=== PATIENT | male | born 1950 | race Caucasian/White ===

== ENCOUNTER 2019-02-07 23:43 | Inpatient (IN) | payer OTHER ==
[~2019-02-07] VITALS: Ht 175.3 cm; Wt 78.7 kg
[~2019-02-07 23:43] MED LIST: ASPI81CH PO; Humulin N100 UNIT/1 SC; METO5A PO; NOVOLIN NPH SC; Norco 5-325 Ta1 EACH PO; Novolin R100 UNIT/M SC; PRAV20 PO; PROM12.5S PR; Plavix75 MG PO; Robaxin-750750 MG PO; Zofran4 MG PO; Zofran8 MG PO; [UNRECOGNIZED DRUG - CODE] PO
[2019-02-08] MEDS ORDERED: ASPI325 PO (00:07)
[2019-02-08 00:17] LABS: BASOPHILS ABSOLUTE AUTO 0.05 K/mm3 (0.00-0.23); BASOPHILS PERCENT AUTO 1 % (0-2); EOSINOPHILS PERCENT AUTO 3 % (0-6); Hematocrit 47.2 % (37.0-53.0); Hemoglobin 16.2 g/dL (13.5-17.5); IMMATURE GRAN ABSOLUTE AUTO 0.04 K/mm3 (0.00-0.10); IMMATURE GRAN PERCENT AUTO 0 % (0-1); LYMPHOCYTES ABSOLUTE AUTO 2.44 K/mm3 (0.84-5.20); LYMPHOCYTES PERCENT AUTO 23 % (21-46); MONOCYTES ABSOLUTE AUTO 0.99 K/mm3 (0.16-1.47); MONOCYTES PERCENT AUTO 9 % (4-13); Mean Corpuscular HGB 31.8 pg (26.0-34.0); Mean Corpuscular HGB Conc 34.3 g/dL (31.5-36.5); Mean Corpuscular Volume 93 fL (80-100); Mean Platelet Volume 10.9 fL (9.1-12.4); NEUTROPHILS ABSOLUTE AUTO 6.86 K/mm3 (1.96-9.15); NEUTROPHILS PERCENT AUTO 64 % (41-73); Platelet Count 246 K/mm3 (150-400); RDW Standard Deviation 41.1 fL (35.1-46.3); White Blood Cell Count 10.68 K/mm3 (4.00-11.30)
[2019-02-08 00:39] LABS: International Normalized Ratio 0.97; Prothrombin Time Results 10.3 Sec (9.7-11.5)
[2019-02-08 00:43] LABS: Alanine Aminotransfer (ALT/SGP 37 U/L (12-78); Albumin, Blood 4.4 g/dL (3.4-5.0); Albumin/Globulin Ratio 1.2 (0.8-1.8); Alk Phos 99 U/L (50-136); Anion Gap 10 mmol/L (6-16); Aspartate Aminotrans (AST/SGOT 106 U/L (12-37); Bilirubin, Total 0.7 mg/dL (0.1-1.0); Blood Urea Nitrogen 15 mg/dL (8-24); Bun/Creatinine Ratio 23.3 (12.0-20.0); CO2, Blood 22 mmol/L (21-32); Calcium, Blood 9.7 mg/dL (8.5-10.1); Chloride, Blood 103 mmol/L (98-108); Creatinine, Blood 0.65 mg/dL (0.60-1.20); Globulin, Blood 3.8 g/dL (2.2-4.0); Glomerular Filtration Rate >60 (60-); Glucose, Blood 287 mg/dL (70-99); Potassium, Blood 3.7 mmol/L (3.5-5.5); Sodium, Blood 135 mmol/L (136-145); Total Protein, Blood 8.2 g/dL (6.4-8.2)
--- NOTE | 2019-02-08 01:30 | NUR ---
ADMIT NOTE: ADMIT 68 YEAR OLD MALE TO ICU 9 PER SENIOR RECRUITMENT CONSULTANT TO DR FREITAS SERVICE. AWAKE TR BAND INTACT SITE CLEAR . ALERT ORIENTED. LUNG SOUNDS CLEAR RESPIRATIONS REGULAR AND EASY ON ROOM AIR SPO2 96-98%. ABDOMEN SOFT NON TENDER WITH BOWEL SOUNDS FOUR QUADS. SKIN NULL WARM/DRY PSORSIS AREAS NOTED TO BOTH FOREARMS. NO EDEMA NOTED PEDAL PULSES PRESENT. CONTINUE TO MONITOR AND REPORT CHANGE IN PATIENT CONDITION DR FREITAS AT BEDSIDE OREDERS NOTED. PT CO NAUSEA MEDICATED WITH 4MG ZOFRAN IV.
--- NOTE | 2019-02-08 04:05 | NUR ---
CO NAUSEA RETCHING DRY HEAVES. NO EMESIS NOTED CONTINUE TO MONITOR
--- NOTE | 2019-02-08 08:09 | NUR ---
CARE ASSUMED CARE AND REPORT ASSUMED FROM LUIS SCHWARZ. PT SLEEPING THEN SUDDENLY AROUSED AND STARTED DRY HEAVING. PT STATES HE NORMALLY GETS ABDOMINAL PAIN AND NAUSEA POST STEMI EACH TIME. ZOFRAN 4 MG IVP GIVEN. BP ELEVATED AND UNABLE TO ADMINISTER MORNING BP MEDS DUE TO NAUSEA. MD WINSLOW NOTIFIED AND BP MED ORDERS WRITTEN; WILL ADMINISTER. NSR WITH PACS, HR 90-100S. WILL CONTINUE TO MONITOR.
[2019-02-08 09:59] LABS: Anion Gap 10 mmol/L (6-16); Blood Urea Nitrogen 12 mg/dL (8-24); Bun/Creatinine Ratio 23.8 (12.0-20.0); CHOL/HDL RATIO 5.5; CO2, Blood 23 mmol/L (21-32); Calcium, Blood 8.8 mg/dL (8.5-10.1); Chloride, Blood 103 mmol/L (98-108); Cholesterol 275 mg/dL (50-200); Creatinine, Blood 0.51 mg/dL (0.60-1.20); Glomerular Filtration Rate >60 (60-); Glucose, Blood 255 mg/dL (70-99); HDL Cholesterol 50 mg/dL (>39); LDL/HDL RATIO 4.1; Low Density Lipoprotein Chol 205 mg/dL (0-110); Potassium, Blood 3.3 mmol/L (3.5-5.5); Sodium, Blood 136 mmol/L (136-145); Triglycerides 100 mg/dL (30-160); Very Low Density Lipoprot Chol 20 mg/dL (6-32)
--- NOTE | 2019-02-08 11:37 | NUR ---
REASSESSMENT PT TOELRATED EATING CHICKEN NOODLE SOUP AND WAS ABLE TO TAKE PLAVIX PO. CONTINUALLY MOANING IN ROOM. MIV NS STARTED AT 75 ML/HR FOR CONCURRENT ADMINISTRATION OF POTASSIUM CHLORIDE. MD FREITAS AWARE OF TROPONIN 123; PLAN TO RECHECK THIS AFTERNOON. HEPARIN GTT INCREASED TO 15 UNITS/HR AND BOLUS GIVEN PER PHARMACY. BP 160S SYSTOLIC; WILL MONITOR CLOSELY AND START NITRO GTT IF NEEDED. REMAINS IN NSR, HR 80S. PT TURNS SELF IN BED. WILL CONTINUE TO MONITOR.
--- NOTE | 2019-02-08 12:09 | NUR ---
K+ REFUSAL DURING POTASSIUM INFUSION, PT SUDDENLY AWOKE AND BEGAN SCREAMING, "TURN THAT SHIT OFF OR I WILL RIP THE IV OUT OF MY ARM. I WILL NOT TOLERATE THAT." EXPLAINED TO PT THE NEED FOR POTASSIUM REPLACEMENT AND HE STATED HE WILL NOT ALLOW STAFF TO INFUSE THAT POTASSIUM AND REQUESTED A BANANA INSTEAD. WILL ATTEMPT TO OBTAIN BANANA. POTASSIUM INFUSION STOPPED.
--- NOTE | 2019-02-08 17:46 | NUR ---
SHIFT SUMMARY PT FEELING BETTER THIS AFTERNOON. WAS VOMITING AND DRY HEAVING IN THE MORNING BUT SYMPTOMS HAVE SINCED IMPROVED. PT STATES ZOFRAN WORKS BEST FOR HIM; RECIEVED 2 DOSES DURING THIS SHIFT. HEPARIN GTT INFUSED ENTIRE SHIFT; CURRENTLY AT 15 UNITS/HR. ATTEMPTED TO ADMINISTER 40 MEQ K+ REPLACEMENT BUT PT REFUSED AND POTASSIUM WAS THEN TURNED OFF. DENIES PAIN AT THIS TIME. R RADIAL SITE IS CLEAN AND DRY AND ARM REMAINS IN ARMBOARD. PT STOOD AT BEDSIDE, AMBULATED WIHTOUT ASSISTANCE, AND SAT IN CHAIR FOR FEW HOURS. SLEPT ON/OFF DURING DAY. TOELRATED DINNER THIS EVENING WITHOUT VOMITING. NO NEED FOR NITRO GTT TODAY BP IMPROVED THROUGHOUT DAY. LABS PENDING AT THIS TIME; WILL MONITOR. WILL GIVE BEDSIDE, HANDOFF REPORT TO PACO RN.
[2019-02-08 18:57] LABS: Potassium, Blood 3.6 mmol/L (3.5-5.5); Troponin I 57.2 ng/mL (0.000-0.040)
--- NOTE | 2019-02-09 00:22 | NUR ---
ASSUMED CARE ASSUMED CARE OF PT APROX. 1900. PT A&OX4. ASSESSMENT COMPLETED VITAL SIGNS STABLE. PT HAD RT RADIAL SITE. TEGADERM OVER INCERSION AND ARMBOARD REMAINS IN PLACE AT THIS TIME. NO S/SX OF SWELLING, HEMATOMA, OR BLEEDING. SITE NON TENDER. PT REPORTS HAVING NAUSEA AT THIS TIME. PRN NAUSEA MEDICATION GIVEN PER EMAR. PT STATES FEELING TIRED AND READY FOR SOME REST. BED IN LOW POSITION, CALL LIGHT IN REACH AND PT DENIES ANY NEEDS AT THIS TIME.
[2019-02-09 03:54] LABS: Anion Gap 7 mmol/L (6-16); Blood Urea Nitrogen 27 mg/dL (8-24); Bun/Creatinine Ratio 43.5 (12.0-20.0); CO2, Blood 22 mmol/L (21-32); Calcium, Blood 8.6 mg/dL (8.5-10.1); Chloride, Blood 105 mmol/L (98-108); Creatinine, Blood 0.62 mg/dL (0.60-1.20); Glomerular Filtration Rate >60 (60-); Glucose, Blood 202 mg/dL (70-99); Potassium, Blood 3.5 mmol/L (3.5-5.5); Sodium, Blood 134 mmol/L (136-145)
--- NOTE | 2019-02-09 06:45 | NUR ---
SHIFT SUMMARY PT PLEASANT, COOPERATIVE AND USES CALL LIGHT APPROPRIATELY. PT REMAINS A&OX4. ASSESSMENT FINDINGS REMAIN UNCHANGED. VITAL SIGNS STABLE. NO CHANGED ON RT RADIAL SITE. ARMBOARD REMAINS IN PLACE WITH TEGADERM DRESSING. NO S/SX OF SWELLING, BLEEDING OR HEMATOMA AND SITE REMAINS NONTENDER. PT CONTINUED TO HAVE INCREASED NAUSEA INTERMITTENLY. PRN NAUSEA MEDICATION GIVEN PER EMAR NEEDED. PT ABLE TO REST FOR MOST OF SHIFT. UTILIZED URINAL NEEDED. BED IN LOW POSITION, CALL LIGHT IN REACH AND PT DENIES ANY NEEDS AT THIS TIME. WILL CONTINUE TO MONITOR UNTIL HANDOFF TO DAYSHIFT RN.
--- NOTE | 2019-02-09 16:13 | NUR ---
PT RESTING COMFORTABLY EYES CLOSED BREATHING EVEN AND UNLABORED NADN. WILL CONTINUE TO MONITOR
--- NOTE | 2019-02-09 18:43 | NUR ---
END OF SHIFT; PT REMAINS ON BEDREST MOST OF DAY. ONLY GETTING UP TO USE BEDSIDE COMMODE. HE IS AO X 4. HAS PLEASANT AFFECT. DOES COMPLAIN OF NAUSEA. NO VOMITTING NOTED. NO CHEST PAIN. ORDERS REPEAT EKG WHICH IS DONE AND ON FRONT OF CHART. ORDERED 5 UNITS HUMULOG WITH MEALS BUT STOPPED WHEN HE LEARNED PT WAS NOT EATING VERY MUCH BECAUSE OF NAUSEA. ARM BOARD IN PLACE FROM TR BAND SITE. CLEAN AND DRY. WILL CONTINUE TO MONITOR THIS PATIENT UNTIL REPORT AND HAND OFF
--- NOTE | 2019-02-09 19:15 | NUR ---
ASSUMED CARE OF PT, REPORT RCV'D FROM KARISHMA NASH. PT ALERT AND ORIENTED SITTING IN BED. PT DENIES CHEST PAIN AT THIS MOMENT BUT REPORTS CONTINUED NAUSEA. PER DAYSHIFT NURSE PT'S DOSES OF ZOFRAN HAVE NOT HELPED AND PT HAS PROLONGED QT. PT TO BE GIVEN ATIVAN AND DOSE OF MG PER JUANITO GALEANO NP. VSS. IRREGULAR HR, SEE RHYTHM STRIP. SEE FULL SHIFT ASSESSMENT.
--- NOTE | 2019-02-09 19:18 | NUR ---
PT COMPLAINING OF NAUSEA AT SHIFT CHANGE. JUANITO GARMENT WORKER IS CALLED AND TELEPHONE ORDER RECEIVED FOR 2GM MAGNESIUM IV NOW, ATIVAN 0.5MG -1MG PRN NAUSEA Q4 AND EKG IN AM. PASSED ON THIS INFOR TO NIGHT NURSE
--- NOTE | 2019-02-10 06:04 | NUR ---
SHIFT SUMMARY NO ACUTE CHANGES OVERNIGHT. PT HAD NO COMPLAINTS OF NAUSEA AFTER 1MG DOSE OF ATIVAN. NO CHEST PAIN OR SHORTNESS OF BREATH. VSS. WILL REPORT TO DAYSHIFT NURSE.
--- NOTE | 2019-02-10 07:29 | NUR ---
ASSUMED CARE OF PATIENT; SEE ASSESSMENT CHARTING FOR DETAILS. PATIENT SLEEPING BUT ROUSES EASILY AND IS ORIENTED AND COOPERATIVE; DENIES ACUTE C/O. TR BAND SITE (R WRIST) WITHOUT S/SX'S OF BLEEDING, SWELLING OR HEMATOMA. MONITOR SHOWS SINUS ARRYTHMIA WITH PAC'S; VSS. LUNGS CLEAR; BIOX. HIGH 90'S ON ROOM AIR. POSSIBLE DISCHARGE TODAY; AWAITING PHYSICIANS TO MAKE ROUNDS.
--- NOTE | 2019-02-10 08:01 | NUR ---
DR. WINSLOW (HOSPITALIST) HERE; WANTS RN TO D/C IVF'S NOW THAT PATIENT ABLE TO TOLERATE DIET. POSSIBLE D/C HOME TODAY; AWAITING RACK PUNCHER TO ROUND.
--- NOTE | 2019-02-10 08:24 | NUR ---
SEAM STAY STITCHER, DR. FREITAS, HERE. WANTS PATIENT TO RECEIVE A LIFE VEST BEFORE DISCHARGING TO HOME. PAPERWORK FILLED OUT BY PHYSICIAN; NURSING TO FAX TO SUPPLIER.
--- NOTE | 2019-02-10 09:58 | NUR ---
[facility], COMPLETED FAXING PROCESS,ETC.; FAXED COPY OF ECHO AND LAY OUT DRAFTER REPORT WELL FACE SHEET AND ORDER. AWAITING CONTACT BACK RE: WHEN VEST CAN BE EXPECTED.
--- NOTE | 2019-02-10 10:21 | NUR ---
Patient is sleeping but easily awakens to the sound of his name. 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 Patient sates that they are stress and now this medical event has been discouraging. I listen empathically, provide pastoral teacher counselor, companionship and prayer. Patient responds well and shows signs of restored alexi.
--- NOTE | 2019-02-10 12:00 | NUR ---
REGLAN 5MG IV FOR MILD NAUSEA. APPETITE FAIR TO GOOD; NO EMESIS OR HEARTBURN. IVF OF NS DISCONTINUED, PER ORDER OF DR. WINSLOW. VOIDING MOD. TO LARGE AMOUNTS OF DK. YELLOW URINE.
[2019-02-10] MEDS ORDERED: ASPI81CH PO (12:15)
--- NOTE | 2019-02-10 12:30 | NUR ---
[employer] TO ARRIVE BETWEEN 16:30 AND 17:00 PM; INFORMED RN THAT INSTRUCTION TO PATIENT WILL TAKE 1 TO 1-1/2 HOURS.
[2019-02-10] MEDS ORDERED: CLOP75 PO (13:44)
[2019-02-10] MEDS ORDERED: ATOR40TA PO (13:44)
[2019-02-10] MEDS ORDERED: FAMO20 PO (13:45)
[2019-02-10] MEDS ORDERED: LISI5 PO (13:46)
[2019-02-10] MEDS ORDERED: METO25 PO (13:48)
--- NOTE | 2019-02-10 16:45 | NUR ---
PATIENTS' SPOUSE HERE TO LISTEN TO INSTRUCTIONS FOR VEST AND THEN TAKE PATIENT HOME.
--- NOTE | 2019-02-10 17:00 | NUR ---
LIFE VEST TECH., KELLY, ARRIVED; PATIENT AND SPOUSE ANXIOUS FOR INSTRUCTION. NOTE: PATIENT WAS BECOMING ANXIOUS FOR TECH. TO ARRIVE AND WAS CONSIDERING GOING HOME WITHOUT THE VEST. RN QUESTIONED PATIENT IF HE KNEW WHY THE DOCTOR HAD ORDERED THE VEST AND HE SAID "NO". RN EXPLAINED TO PATIENT AND SPOUSE THAT IN 2017 PATIENTS' EF WAS 65-70% BUT ECHO DONE THIS HOSP. ADMISSION SHOWS EF OF 35%. PATIENT AGREEABLE WITH WAITING FOR TECH.
--- NOTE | 2019-02-10 18:15 | NUR ---
DISCHARGE INSTRUCTIONS GIVEN TO PATIENT WITH UNDERSTANDING VERBALIZED. LIFE VEST INSTRUCTOR LEFT AT 1802. PATIENT EATING DINNER AND NOW RN DISCONTINUING IV'S X 2 PER PROTOCOL. PATIENT THEN GETTING DRESSED.
--- NOTE | 2019-02-10 18:30 | NUR ---
DISCHARGED HOME WITH SPOUSE. TO VEHICLE VIA W/C; BELONGINGS AND LIFE VEST WITH PATIENT (CONNECTED TO VEST AND MACHINE).
== END 2019-02-10 18:30 | disposition home or self-care (01) | DRG 249 ==
LOC: ER 23:43 → ICUW 02-08 00:08
PROVIDERS: Emergency Medicine; ADMIT Emergency Medicine
PROC: 02703DZ Dilation of Coronary Artery, One Artery with Intraluminal Device, Percutaneous Approach (ICD-10-PCS; principal; 2019-02-08)
PROC: 4A023N7 Measurement of Cardiac Sampling and Pressure, Left Heart, Percutaneous Approach (ICD-10-PCS; 2019-02-08)
PROC: B2161ZZ Fluoroscopy of Right and Left Heart using Low Osmolar Contrast (ICD-10-PCS; 2019-02-08)
DX: I21.02 ST elevation (STEMI) myocardial infarction involving left anterior descending coronary artery (principal); I25.10 Atherosclerotic heart disease of native coronary artery without angina pectoris; I10 Essential (primary) hypertension; E11.42 Type 2 diabetes mellitus with diabetic polyneuropathy; Z79.4 Long term (current) use of insulin; Z79.82 Long term (current) use of aspirin; E78.5 Hyperlipidemia, unspecified; Z91.14 Patient's other noncompliance with medication regimen; Z79.02 Long term (current) use of antithrombotics/antiplatelets; I25.5 Ischemic cardiomyopathy
CPT/HCPCS: 36415; 80048; 80053; 80061; 82947; 83036; 84132; 84484; 85025; 85347; 85610; 85730; 92941; 93005; 93010; 93458; 96374; 99152; 99153; 99285-25; C1725; C1769; C1876; C1887; C1894; C8923; J1644; J1815; J2060; J2250; J2270; J2405; J2765; J3010; J3475; J3480; J7030; Q9967

== ENCOUNTER 2019-02-11 17:35 | Inpatient (IN) | payer OTHER ==
[~2019-02-11] VITALS: Ht 175.3 cm; Wt 77.7 kg
[~2019-02-11 17:35] MED LIST changes: +ASPI325 PO; +ATOR40TA PO; +CLOP75 PO; +FAMO20 PO; +LISI5 PO; +METO25 PO
[2019-02-11 17:59] LABS: BASOPHILS ABSOLUTE AUTO 0.05 K/mm3 (0.00-0.23); BASOPHILS PERCENT AUTO 0 % (0-2); EOSINOPHILS ABSOLUTE AUTO 0.19 K/mm3 (0.00-0.68); EOSINOPHILS PERCENT AUTO 2 % (0-6); Hematocrit 42.7 % (37.0-53.0); Hemoglobin 14.6 g/dL (13.5-17.5); IMMATURE GRAN ABSOLUTE AUTO 0.06 K/mm3 (0.00-0.10); IMMATURE GRAN PERCENT AUTO 1 % (0-1); LYMPHOCYTES ABSOLUTE AUTO 2.01 K/mm3 (0.84-5.20); LYMPHOCYTES PERCENT AUTO 16 % (21-46); MONOCYTES ABSOLUTE AUTO 1.26 K/mm3 (0.16-1.47); MONOCYTES PERCENT AUTO 10 % (4-13); Mean Corpuscular HGB 31.8 pg (26.0-34.0); Mean Corpuscular HGB Conc 34.2 g/dL (31.5-36.5); Mean Corpuscular Volume 93 fL (80-100); Mean Platelet Volume 11.1 fL (9.1-12.4); NEUTROPHILS ABSOLUTE AUTO 8.84 K/mm3 (1.96-9.15); NEUTROPHILS PERCENT AUTO 71 % (41-73); Platelet Count 246 K/mm3 (150-400); RDW Coefficient Variation 11.9 % (11.7-14.2); Red Blood Cell Count 4.59 M/mm3 (4.30-5.90); White Blood Cell Count 12.41 K/mm3 (4.00-11.30)
[2019-02-11 18:15] LABS: International Normalized Ratio 0.99; Prothrombin Time Results 10.5 Sec (9.7-11.5)
[2019-02-11 18:26] LABS: Alanine Aminotransfer (ALT/SGP 30 U/L (12-78); Albumin, Blood 4.2 g/dL (3.4-5.0); Albumin/Globulin Ratio 1.1 (0.8-1.8); Alk Phos 90 U/L (50-136); Anion Gap 9 mmol/L (6-16); Aspartate Aminotrans (AST/SGOT 29 U/L (12-37); Bilirubin, Total 0.6 mg/dL (0.1-1.0); Blood Urea Nitrogen 24 mg/dL (8-24); Bun/Creatinine Ratio 32.7 (12.0-20.0); CO2, Blood 26 mmol/L (21-32); Calcium, Blood 9.5 mg/dL (8.5-10.1); Chloride, Blood 98 mmol/L (98-108); Creatinine, Blood 0.73 mg/dL (0.60-1.20); Globulin, Blood 3.8 g/dL (2.2-4.0); Glomerular Filtration Rate >60 (60-); Glucose, Blood 303 mg/dL (70-99); Sodium, Blood 133 mmol/L (136-145)
--- NOTE | 2019-02-11 22:31 | NUR ---
ASSUMED CARE OF PT. PT TO ICU 15 FROM DIRECTOR REPORT FOLLOWING STENT TO PROXIMAL RCA AND BALLOONING OF LAD. PT DENIES CHEST PAIN OR SHORTNESS OF BREATH. PT STATES HE DOES FEEL LIKE HE HAS A CRAMP IN HIS NECK BUT DENIES THAT THIS PAIN IS SIMILAR TO PREVIOUS CARDIAC PAIN. PT CURRENTLY RESTING, AT BEDSIDE. PT DENIES NEEDS AT THIS TIME. SEE ADMISSION ASSESSMENT.
[2019-02-12 04:01] LABS: BASOPHILS ABSOLUTE AUTO 0.06 K/mm3 (0.00-0.23); BASOPHILS PERCENT AUTO 1 % (0-2); EOSINOPHILS PERCENT AUTO 4 % (0-6); Hematocrit 38.6 % (37.0-53.0); IMMATURE GRAN ABSOLUTE AUTO 0.06 K/mm3 (0.00-0.10); IMMATURE GRAN PERCENT AUTO 1 % (0-1); LYMPHOCYTES ABSOLUTE AUTO 1.81 K/mm3 (0.84-5.20); LYMPHOCYTES PERCENT AUTO 18 % (21-46); MONOCYTES ABSOLUTE AUTO 1.21 K/mm3 (0.16-1.47); MONOCYTES PERCENT AUTO 12 % (4-13); Mean Corpuscular HGB 31.5 pg (26.0-34.0); Mean Corpuscular HGB Conc 33.7 g/dL (31.5-36.5); Mean Corpuscular Volume 94 fL (80-100); NEUTROPHILS ABSOLUTE AUTO 6.67 K/mm3 (1.96-9.15); NEUTROPHILS PERCENT AUTO 65 % (41-73); Platelet Count 215 K/mm3 (150-400); RDW Coefficient Variation 11.9 % (11.7-14.2); RDW Standard Deviation 41.1 fL (35.1-46.3); Red Blood Cell Count 4.13 M/mm3 (4.30-5.90); White Blood Cell Count 10.21 K/mm3 (4.00-11.30)
[2019-02-12 04:16] LABS: Anion Gap 6 mmol/L (6-16); Blood Urea Nitrogen 18 mg/dL (8-24); CO2, Blood 25 mmol/L (21-32); Calcium, Blood 8.6 mg/dL (8.5-10.1); Chloride, Blood 105 mmol/L (98-108); Creatinine, Blood 0.55 mg/dL (0.60-1.20); Glomerular Filtration Rate >60 (60-); Glucose, Blood 219 mg/dL (70-99); Potassium, Blood 4.2 mmol/L (3.5-5.5); Sodium, Blood 136 mmol/L (136-145)
--- NOTE | 2019-02-12 05:52 | NUR ---
SHIFT SUMMARY NO ACUTE CHANGES SINCE ADMISSION. PT ABLE TO REST WELL OVERNIGHT WITH NO COMPLAINTS OF CHEST PAIN OR SHORTNESS OF BREATH. PT COMPLAINED OF "NECK CRAMP" ON HIS RIGHT SIDE THAT WAS HELPED WITH REPOSITIONING AND TYLENOL. RIGHT RADIAL ACCESS SITE COVERED IN CLEAR DRESSING WITH NO SIGNS OF OOZING, ARM BOARD IN PLACE. PT LIKELY TO BE DISCHARGED HOME TODAY PER DR. DAILEY. WILL REPORT TO DAYSHIFT NURSE.
--- NOTE | 2019-02-12 08:08 | NUR ---
0700-ASSUMED CARE OF PT. PT IS ASLEEP AT THIS TIME. WILL ALLOW PATIENT TO SLEEP IN AT THIS TIME. 0730-PT AWAKE. AFEBRILE. PT IS COMPLAINING OF R NECK PAIN. HE DENIES ANY RADIATION OF PAIN TO EXTREMETIES. DENIES OF CHEST PAIN AND CHEST PRESSURE. PT STATES PAIN WHEN NOT MOVING 6/10 WHEN REPOSITIONING IT'S 8/10. APPLIED SOME HEAT PACK TO R SHOULDER. R RADIAL ACCESS SITE VERY SLIGHT BRUISING NOTED, STABLE.
--- NOTE | 2019-02-12 11:13 | NUR ---
PT IS WAITING FOR DR. DAILEY. PT STATES R NECK PAIN HAS IS SLOWING IMPROVING. HE STATED HOT PACK HAS HELPED.
--- NOTE | 2019-02-12 12:06 | NUR ---
1130-PT SEEN BY DR. DAILEY. UPDATED HIM OF PT'S STATUS. DR. DAILEY IS AWARE OF PT'S R NECK, SHOULDER PAIN. PT HAS STATED THE HOT PACK HAS IMPROVED PAIN TO THE R NECK, SHOULDER.
--- NOTE | 2019-02-12 14:36 | NUR ---
PT SITTING ON THE CHAIR AT THIS TIME. PT WAS ABLE TO AMBULATE IN THE ICU [facility]. PT STATED HE WAS SOMEWHAT LIGHTHEADED WITH AMBULTAION. PT IS SLIGHTLY UNSTEADY ON HIS FEET.
--- NOTE | 2019-02-12 17:40 | NUR ---
SHIFT SUMMARY: PT IS ALERT AND ORIENTED. PT STIL COMPLAINTS OF R NECK, SHOULDER CRAMP BUT TOLERABLE PER PATIENT WITH THE HELP OF THE HEATING PAD. NO CHEST PAIN OR PRESSURE NOTED. PT WAS ABLE TO AMBULATE IN THE ICU [facility].
--- NOTE | 2019-02-12 19:45 | NUR ---
ASSUMED CARE PT CARE ASSUMED AT APPROXIMATELY 1900. PT CURRENTLY RESTING IN BED. DENIES CHEST PAIN OR DYSPNEA. R RADIAL SITE WITH PINPOINT INCISION NOTED TO HAVE VERY SMALL AMOUNT OF DRY RED DRAINAGE UNDER CLEAR TEGADERM DRESSING. NO BRUISING, SWELLING OR HEMATOMA NOTED TO CURRENT SITE. SMALL NODULE NOTED BELOW CURRENT SITE FROM PREVIOUS CARDIAC CATH. PT DENIES PAIN ON PALPATION. ARM BOARD CURRENTLY IN PLACE AND EDUCATION PROVIDED ON MINIMIZING USE OF R WRIST. WILL CONTINUE WITH MONITORING.
--- NOTE | 2019-02-13 06:25 | NUR ---
SHIFT SUMMARY PT HAS REMAINED AOX4 THROUGHOUT SHIFT. VSS. PLEASANT AND COOPERATIVE WITH CARE. PT HAS DENIED CHEST PAIN, DYSPNEA AND DIZZINESS THROUGHOUT THE NIGHT. CONTINUES TO REPORT DISCOMFORT TO R SHOULDER AND NECK THAT HAS DECREASED WITH HEAT THERAPY AND TYLENOL. R RADIAL SITE HAS REMAINED UNCHANGED THROUGHOUT THE NIGHT. ARM BOARD REMOVED PER PATIENT REQUEST- EDUCATION REINFORCED ON WRIST PRECAUTIONS. NO OTHER CHANGES NOTED FROM INITIAL ASSESSMENT. WILL CONTINUE TO MONITOR AND REPORT TO ONCOMING SHIFT RN. BED IN LOW POSITION, CALL LIGHT IN REACH.
--- NOTE | 2019-02-13 07:34 | NUR ---
ASSUMED CARE: PT INDEPENDENT IN ROOM. RIGHT WRIST NOTED TO HAVE NODULE BENEATH ACCESS SITE BUT DENIES TENDERNESS, NO BRUISING OR SIGNS OF BLEEDING. TWO PUNCTURE SITES NOTED. DENIES NEEDS OR CONCERNS AT THIS TIME.
--- NOTE | 2019-02-13 10:23 | NUR ---
MESSAGE LEFT WITH DR DAILEY REGARDING PLAN FOR PT. AWAITING CALL BACK
--- NOTE | 2019-02-13 11:37 | NUR ---
Patient is lying in bed and alert. Patient tells me that he wasn't home for more than a few hours after his last discharge from the hospital and he had another heart attack. Patient stated he is discouraged by the seemingly unending medical issues and that this last one took some wind out of his sails. I facilitated a life review focusing on all that patient has overcome and will continue to overcome. I provided pastoral sexual assault counselor and quoted appropriate Bible passages to inspire and encourage patient. I also provided prayer to further uplift patient's spirits. Patient responded well and displayed evidence of increased hope and courage.
[2019-02-13] MEDS ORDERED: TICA90TA PO (12:05)
--- NOTE | 2019-02-13 14:08 | NUR ---
pt given dc instructions, iv removed wnl. pt instructed to follow up with pcp and cardiology. denied further questions or concerns. escorted out via wheel chair by hospital staff
== END 2019-02-13 13:30 | disposition home or self-care (01) | DRG 247 ==
LOC: ER 17:35 → ICUW 18:12
PROVIDERS: Emergency Medicine; ADMIT Internal Medicine Cardiovascular Disease
PROC: 4A023N8 Measurement of Cardiac Sampling and Pressure, Bilateral, Percutaneous Approach (ICD-10-PCS; principal; 2019-02-11)
PROC: 027034Z Dilation of Coronary Artery, One Artery with Drug-eluting Intraluminal Device, Percutaneous Approach (ICD-10-PCS; 2019-02-11)
PROC: B211YZZ Fluoroscopy of Multiple Coronary Arteries using Other Contrast (ICD-10-PCS; 2019-02-11)
DX: I21.9 Acute myocardial infarction, unspecified (principal); I25.10 Atherosclerotic heart disease of native coronary artery without angina pectoris; I10 Essential (primary) hypertension; E11.9 Type 2 diabetes mellitus without complications; I25.9 Chronic ischemic heart disease, unspecified; I51.9 Heart disease, unspecified
CPT/HCPCS: 36415; 71045; 80048; 80053; 84484; 85025; 85347; 85610; 85730; 92920; 92978; 92979; 93005; 93010; 93454; 96374; 96375; 99152; 99153; 99285-25; A9270; C1725; C1753; C1769; C1874; C1887; C1894; C9600; J1644; J2250; J3010; J7030; Q9967